=== PATIENT | male | born 1955 | race Two or more races ===

== ENCOUNTER 2016-08-18 18:05 | Emergency (ER) | payer OTHER ==
[~2016-08-18] VITALS: Ht 170.2 cm; Wt 85.7 kg
[~2016-08-18 18:05] MED LIST: NKM; NORCO 5-325 TA1 EACH ORAL
[2016-08-18] MEDS ORDERED: Norco 5mg/325mg tab ORAL ONE (18:45)
[2016-08-18 19:05] VITALS: BP 147/94
[2016-08-18] MEDS ORDERED: IBUPROFEN600 MG ORAL (19:15)
--- NOTE | 2016-08-18 20:52 | Emergency Room Report ---
History of Present Illness General Chief Complaint: Upper Extremity Injury Source: Patient Present Illness [facility] The patient is a 60-year-old male presenting for pain to the left index finger. The patient states that he was at work when a door closed on to the hand. Pain is described as an 8/10 dull ache to the end of the index finger. He also notes numbness. Pain does not radiate. It is worse with touch and movement. He denies prior injury to this finger. He denies any other symptoms or injuries Allergies: Coded Allergies: No Known Allergies (Unverified , 11/05/13) Patient History Past Medical History: see triage record Pertinent Family History: none Reviewed Nursing Documentation: PMH: Agreed, PSxH: Agreed Nursing Documentation-PMH Past Medical History: No Stated History Review of Systems All Other Systems: negative except mentioned in HPI Physical Exam Vital Signs Date Time Temp Pulse Resp B/P Pulse Ox O2 Delivery O2 Flow Rate FiO2 08/18/16 18:13 98.4 88 15 153/96 98 Room Air Sp02 EP Interpretation: reviewed, normal General Appearance: no apparent distress, alert, GCS 15, non-toxic Head: normocephalic, atraumatic Eyes: bilateral eye PERRL, bilateral eye normal inspection ENT: hearing grossly normal, normal pharynx, no angioedema, normal voice Musculoskeletal: normal range of motion, swelling, tender - TTP over the L 2nd DIPJ Neurologic: alert, oriented x3, responsive, motor strength/tone normal, sensory intact, speech normal Psychiatric: judgement/insight normal, memory normal, mood/affect normal, no suicidal/homicidal ideation Skin: normal color, no rash, warm/dry, well hydrated Lymphatic: no adenopathy Procedures Splinting Splinting : Consent: Verbal Location: L index Pre-Made Type: metal Pre-Proc Neuro Vasc Exam: normal Post-Proc Neuro Vasc Exam: normal Patient Tolerated: Well Complications: None Medical Decision Making PA Attestation Dr. Lakhani is my supervising physician. Patient management was discussed with my supervising physician Diagnostic Impression: Primary Impression: Fracture of phalanx of index finger Qualified Codes: S62.661A - Nondisplaced fracture of distal phalanx of left index finger, initial encounter for closed fracture ER Course The patient is a 60-year-old male presenting for pain to the left index finger. Ddx considered include but not limited to sprain/strain, fracture, contusion PE; vitals WNL. NAD Left hand: There is tenderness to palpation with edema to the left distal second digit. Full active range of motion. X-ray of the hand shows a fracture of the distal phalanx. A metal finger splint is placed and the patient will followup with workers compensation and also orthopedics. ER precautions are given Other X-Ray Diagnostic Results Other X-Ray Diagnostic Results : X-Ray Ordered: L hand Date: Aug 18, 2016 EP Interpretation: Yes Findings: no dislocation, no soft tissue swelling, other - fracture of distal phalynx Number of Views: 3 PA Scribe Text I am acting as scribe for my supervising physician. My supervising physician's interpretation of the L hand xrays are there are no dislocations or soft tissue swelling. + fracture of distal phalynx at DIPJ Last Vital Signs Date Time Temp Pulse Resp B/P Pulse Ox O2 Delivery O2 Flow Rate FiO2 08/18/16 19:41 98.3 84 14 147/94 98 Room Air Status: improved Disposition: HOME, SELF-CARE Condition: Improved Scripts Ibuprofen* (MOTRIN*) 600 Mg Tablet 600 MG ORAL Q6H Y for For Pain, #30 TAB Prov: YOLY BOYD 08/18/16 Referrals: NOT CHOSEN IPA/MD,REFERRING (PCP) Patient Instructions: Finger Fracture Additional Instructions: I discussed my findings with the patient. All questions and concerns have been answered. Treatment and medication compliance have been addressed. I advised the patient that they need to follow up with PMD in 3-5 days. Return to ED if pain remains or worsens, numbness or tingling occurs, new rash is noticed, fever is noticed, or if needed for any reason. Patient verbalized understanding of discharge instructions. YOLY BOYD Aug 18, 2016 20:52
--- NOTE | 2016-08-20 07:59 | Diagnostic Imaging Report ---
Indications: Left hand pain Technique: 3 views left hand. Findings: Comparison: None Portion of the fourth finger obscured by overlying ring. Soft tissues of second finger mildly swollen. No fracture, dislocation, joint space widening , lytic destruction, periosteal reaction , soft tissue foreign body/gas, or other acute changes are identified. Multiple interphalangeal joints narrowed with marginal osteophyte formation, second distal interphalangeal joint most prominently affected. No other chronic changes are demonstrated. 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 Superimposed acute arthritic flare must be considered.
== END 2016-08-18 19:43 | disposition home or self-care (01) ==
LOC: EMR 19:36
DX: S62.661A Nondisplaced fracture of distal phalanx of left index finger, initial encounter for closed fracture (principal); W22.8XXA Striking against or struck by other objects, initial encounter; Y93.9 Activity, unspecified; Y99.0 Civilian activity done for income or pay
CPT/HCPCS: 29280; 99283